=== PATIENT | female | born 1960 | race Two or more races ===

== ENCOUNTER 2018-08-15 05:50 | Day surgery (SDC) | payer OTHER ==
[2018-08-15] MEDS ORDERED: MIRALAX17 GM PO (09:23)
[2018-08-15] MEDS ORDERED: TRAMADOL HCL50 MG PO (09:23)
[2018-08-15] MEDS ORDERED: TYLENOL EXTRA500 MG PO (09:23)
[2018-08-15] MEDS ORDERED: NEURONTIN300 MG PO (09:23)
[2018-08-15] MEDS ORDERED: ZOFRAN4 MG PO (09:23)
== END 2018-08-15 12:05 | disposition home or self-care (01) ==
LOC: CIR.AMB 05:50
DX: K42.0 Umbilical hernia with obstruction, without gangrene (principal)

== ENCOUNTER 2020-03-13 06:00 | Outpatient (CLI) | payer OTHER ==
[~2020-03-13 06:00] MED LIST: MIRALAX17 GM PO; NEURONTIN300 MG PO; TRAMADOL HCL50 MG PO; TYLENOL EXTRA500 MG PO; ZOFRAN4 MG PO
== END 2020-03-13 06:05 | disposition home or self-care (01) ==
LOC: LAB 06:00
PROVIDERS: ATTEND Surgery
DX: Z20.828 Contact with and (suspected) exposure to other viral communicable diseases (principal); I10 Essential (primary) hypertension; D64.89 Other specified anemias; E11.00 Type 2 diabetes mellitus with hyperosmolarity without nonketotic hyperglycemic-hyperosmolar coma (NKHHC); E78.2 Mixed hyperlipidemia; E04.1 Nontoxic single thyroid nodule; D68.8 Other specified coagulation defects

== ENCOUNTER 2020-03-19 07:05 | Day surgery (SDC) | payer OTHER | END 2020-03-19 18:00 | disposition home or self-care (01) | LOC: CIR.AMB 07:05 | PROVIDERS: ATTEND Surgery | DX: D24.1 Benign neoplasm of right breast (principal) ==

== ENCOUNTER 2022-08-10 06:56 | Day surgery (SDC) | payer OTHER ==
[2022-08-10] MEDS ORDERED: KETO10TA2 PO (09:45)
[2022-08-10] MEDS ORDERED: TRAMADOL HCL50 MG PO (09:45)
[2022-08-10] MEDS ORDERED: MIRALAX17 GM PO (09:45)
[2022-08-10] MEDS ORDERED: TYLENOL ARTHRI650 MG PO (09:45)
== END 2022-08-10 14:55 | disposition home or self-care (01) ==
LOC: CIR.AMB 06:56
PROVIDERS: ATTEND Surgery
DX: K40.30 Unilateral inguinal hernia, with obstruction, without gangrene, not specified as recurrent (principal); F17.210 Nicotine dependence, cigarettes, uncomplicated; Z20.822 Contact with and (suspected) exposure to COVID-19
CPT/HCPCS: 49507; C1781

== ENCOUNTER 2024-12-17 23:28 | Emergency (ER) | payer OTHER ==
[~2024-12-17] VITALS: Ht 165.1 cm; Wt 72.6 kg
[~2024-12-17 23:28] MED LIST changes: +KETO10TA2 PO; +TYLENOL ARTHRI650 MG PO
[2024-12-17 23:42] VITALS: BP 119/77; O2SAT 98
[2024-12-18] MEDS ORDERED: PROMETHAZINE HCL 50 MG/ML AMPUL IM STA (02:00)
[2024-12-18] MEDS ORDERED: FAMOTIDINE/PF 20 MG/2 ML VIAL IV PUSH STA (02:00)
[2024-12-18] MEDS ORDERED: 0.9 % SODIUM CHLORIDE 1,000 ML IV ONE (02:00)
[2024-12-18] MEDS ORDERED: FAMOTIDINE/PF 20 MG/2 ML VIAL ONE (02:16)
[2024-12-18] MEDS ORDERED: PROMETHAZINE HCL 50 MG/ML AMPUL IM ONE (02:16)
[2024-12-18 03:03] LABS: BASO % 0.2 % (0.1-1.2); EOS # 0.02 (0.04-0.54); EOS % 0.2 % (0.7-7.0); LYMPH # 1.06 (1.18-3.74); LYMPH % 8.7 % (19.3-53.1); MEAN PLATELET VOLUME 10.00 fl (9.4-12.4); MONO # 0.87 (0.24-0.82); MONO % 7.1 % (4.7-12.5); NEUT # 10.19 (1.56-6.13); NEUT % 83.2 % (34.0-71.1); RED CELL DISTRIBUTION WIDTH 12.8 % (11.6-14.4)
[2024-12-18 03:07] LABS: URINE APPEARANCE Turbid; URINE BILIRRUBIN Small (NEGATIVE); URINE BLOOD Small; URINE COLOR Dark Yellow; URINE GLUCOSE Negative (NEGATIVE); URINE KETONE 15 (NEGATIVE); URINE LEUKOCYTE Negative; URINE NITRATE Negative; URINE PROTEIN 30 (NEGATIVE); URINE UROBILINOGEN 1.0 E.U./dl
[2024-12-18 03:10] LABS: URINE BACTERIA 663.5 uL (0.0-1933); URINE EPITHELIAL CELLS 22.1 uL (0.0-38.8); URINE RBC 71.2 uL (0.0-20.8); URINE WBC 12.7 uL (0.0-23.2)
[2024-12-18 03:27] LABS: ALT/SGPT 22.0 U/L (12-78); AST/SGOT 13.0 U/L (15-37); BILIRUBIN TOTAL 1.29 mg/dL (0.3-1.2); BUN CREA RATIO 25.0 (7.0-25.0); CREATININE SERUM 0.51 mg/dL (0.55-1.02); GFR 121.8; GLOBULINA 3.7 G/DL (2.4-3.5); GLUCOSE FASTING 122.0 mg/dL (65-100); OSMOLALITY SERUM 285.0 MOSM/KG (275-295)
[2024-12-18 03:53] LABS: URINE CAST 0.73 uL (0.0-1.40)
[2024-12-18 04:06] LABS: URINE CRYSTALS MANY /HPF
[2024-12-18] MEDS ORDERED: ZOFRAN8 MG PO (05:56)
[2024-12-18] MEDS ORDERED: PEPCID40 MG PO ×2 (05:56→05:57)
== END 2024-12-18 06:21 ==
LOC: ER 23:30
PROVIDERS: General Practice
DX: R11.10 Vomiting, unspecified (principal)